=== PATIENT | male | born 1945 | race Caucasian/White ===

== ENCOUNTER 2016-11-16 06:55 | Observation (INO) | payer OTHER, MEDICARE ==
[2016-11-16] MEDS ORDERED: ceFAZolin 2 GM/DEXTROSE 100 ML IV ONE (07:00)
[2016-11-16] MEDS ORDERED: DIAZEPAM 5 MG TAB PO ONE (07:00)
[2016-11-16] MEDS ORDERED: BACITRACIN IRRIGATION/NS 50,000 UNITS/1,000 ML BTL IRR ONE (07:00)
[2016-11-16] MEDS ORDERED: diphenhydrAMINE 25 MG CAP PO ONE (07:00)
[2016-11-16] MEDS ORDERED: NS 1,000 ML IV ONE ×2 (07:00)
[2016-11-16 07:49] LABS: % IMMATURE GRANULYOCYTES 0.2 % (0.0-1.1); ABSOLUTE IMMATURE GRANULOCYTES 0.01 10^3/uL (0.00-0.10); ADD DIFF? NO; ADD MORPH? NO; ADD SCAN? NO; ATYPICAL LYMPHOCYTE FLAG 0 (0-99); FRAGMENT RBC FLAG 0 (0-99); HEMATOCRIT 42.2 % (40.0-51.0); HEMOGLOBIN 14.4 g/dL (13.7-17.5); LEFT SHIFT FLG 0 (0-99); LIPEMIA HEMOLYSIS FLAG 90 (0-99); MEAN CELL HEMOGLOBIN 31.7 pg (27.9-34.1); MEAN CELL HEMOGLOBIN CONCENTR. 34.1 g/dL (32.4-36.7); MEAN PLATELET VOLUME 9.3 fL (8.7-11.7); PLATELET CLUMPS FLAG 0 (0-99); PLATELET COUNT 126 10^3/uL (150-400); RED BLOOD CELL COUNT 4.54 10^6/uL (4.40-6.38); RED CELL DISTRIBUTION WIDTH 13.7 % (11.5-15.2)
[2016-11-16 07:55] LABS: INR 0.96 (0.83-1.16); PROTIME(PATIENT) 12.7 SEC (12.0-15.0)
[2016-11-16 07:56] LABS: APTT 30.1 SEC (23.0-38.0)
[2016-11-16 07:59] LABS: ANION GAP 11 mEq/L (8-16); CARBON DIOXIDE 27 mEq/l (22-31); CHLORIDE 105 mEq/L (97-110); CREATININE 0.8 mg/dL (0.7-1.3); GLOMERULAR FILTRATION RATE > 60; GLUCOSE 105 mg/dL (70-100); MAGNESIUM 1.8 mg/dL (1.6-2.3); POTASSIUM 4.1 mEq/L (3.5-5.2); SODIUM 143 mEq/L (134-144)
[2016-11-16] MEDS ORDERED: MIDAZOLAM 2 MG/2 ML VIAL ONE (08:34)
[2016-11-16] MEDS ORDERED: PROPOFOL/EMULSION 500 MG/50 ML BOTTLE IV ONE ×3 (08:37→10:23)
[2016-11-16] MEDS ORDERED: fentaNYL 250 MCG/5 ML INJ ONE (08:37)
[2016-11-16] MEDS ORDERED: ROCURONIUM 50 MG/5 ML VIAL ONE ×3 (08:41→10:42)
[2016-11-16] MEDS ORDERED: DEXAMETHASONE 4 MG/ML VIAL ONE (09:14)
--- NOTE | 2016-11-16 09:49 | CPEKG ---
Heart Rate: 71 RR Interval: 845 P-R Interval: 212 QRSD Interval: 100 QT Interval: 392 QTC Interval: 426 QRS [place]: -22 T Wave [place]: -19 EKG Severity - ABNORMAL ECG - EKG Impression: ATRIAL-PACED RHYTHM EKG Impression: INFERIOR INFARCT, AGE INDETERMINATE Electronically Signed By: Harshad Hernández 16-Nov-2016 15:44:34
[2016-11-16] MEDS ORDERED: GLYCOPYRROLATE 0.2 MG/1 ML VIAL ONE (10:22)
[2016-11-16] MEDS ORDERED: fentaNYL 100 MCG/2 ML INJ ONE (10:23)
[2016-11-16] MEDS ORDERED: SUGAMMADEX SODIUM 200 MG/2 ML VIAL IVP ONE (11:09)
[2016-11-16] MEDS ORDERED: ONDANSETRON 4 MG/2 ML VIAL ONE (11:10)
[2016-11-16] MEDS ORDERED: OXYCODONE/APAP 5/325 TAB PO PRN ×2 (11:31→15:08)
[2016-11-16] MEDS ORDERED: ONDANSETRON 4 MG/2 ML VIAL IVP PRN (11:31)
[2016-11-16] MEDS ORDERED: ACETAMINOPHEN 325 MG TAB PO PRN (11:31)
--- NOTE | 2016-11-16 11:31 | EPPROC ---
Electrophysiology Procedure Note: ELECTROPHYSIOLOGIC STUDY AND CATHETER MEDIATED ABLATION OF FOCAL RIGHT ATRIAL TACHYCARDIA AND AVNRT PROCEDURES PERFORMED: 48429-93 EP evaluation with RA/RV/LA pace/record, with arrhythmia induction 12297-60 EP evaluation with RA/RV pace record, insert/reposition catheter, with arrhythmia induction 65235 Intracardiac catheter ablation, SVT arrhythmogenic focus 46314 3D mapping Fluoroscopy Second arrhythmia Pacemaker reprogramming INDICATION: Presyncope HR 180 bpm seen on pacemaker check Prior inferior AK, LVEF 45% Catheters and anesthesia: The patient arrived in the Electrophysiology Laboratory in the fasting state. The right clavicular region, right groin, and left groin area were prepped and draped in the usual sterile manner. Anesthesiologist Dr. Madelyn Gomez administered general anesthesia. Appropriate non-invasive blood pressure, pulse oximetry and end-tidal CO2 monitoring was established. All catheters were placed percutaneously using the modified Seldinger technique , and advanced into position under fluoroscopic guidance. One #6 Hungarian Lissa electrode catheter was advanced to the His-bundle position via the left femoral vein (2mm spacing; except the proximal ring which was 25cm from the tip - used for unipolar recordings). This was later placed at the right atrial appendage. One #7 Hungarian deflectable catheter with 10 pairs of electrodes was placed via the left femoral vein into the coronary sinus. Programmed stimulation was performed from the right atrium, left atrium ( coronary sinus) and right ventricle. Parahisian pacing demonstrated all retrograde conduction over the AV node There was underlying sinus node dysfunction with junctional escape rhythm. This is known and preexisting. Pacemaker was reprogrammed to VVI 40 ppm during the case. There is an abandoned ventricular lead. Atrial lead has low impedance and is programmed unipolar. Programmed stimulation from Heparin was administered to keep ACT > 200 seconds. Programmed stimulation of right atrium during infusion of isoproterenol 3 mcg/ min induced an atrial tachycardia CL 330 ms . AV dissociation was confirmed with PVC. A second arrhythmia, CL 290 ms was induced. This started with long AH interval. VA interval was 5 ms. This tachycardia did not sustain and therefore we could not entrain it. Agilis sheath was placed in the RA. A #7 Hungarian mapping catheter was introduced into the right atrium . A 3D mapping system (Carto) was used. Ablation in the slow AV abrahan pathway area eliminated SVT, CL 290 ms. Following this, an a detailed 3D map of the right atrium and coronary sinus was performed during atrial tachycardia. This showed earliest atrial activation along the anterolateral base of the right atrial appendage. Earliest atrial activation began 15 ms before the onset of the P wave with a negative deflection in the unipolar electrogram. RF applications were delivered to this site. This accelerated and then terminated the tachycardia. Programmed stimulation in the baseline state and during infusion of isoproterenol 1, 2 and 3 mcg/min post ablation was performed. No tachycardia could be induced. The catheters were removed. Pacemaker was reprogrammed to DDDR 70-130 ppm. The patient was transferred to the cardiovascular holding area in stable condition. Vascular access sheaths were removed in the holding area. There were no apparent complications. CONCLUSIONS: 1. Focal atrial tachycardia arising at base of right atrial appendage. 2. Successful ablation of focal atrial tachycardia. 3. AVNRT, successful ablation. 4. No inducible ventricular tachycardia. 5. No apparent complications. Patient Problems: Problems Problem Status Diagnosed Supraventricular tachycardia Acute Chest pain Acute
[2016-11-16] MEDS ORDERED: NON-FORMULARY NEW DRUG (Oxycodone Hcl/Acetaminophen [Percocet 7.5-325 Mg Tablet] 1 EACH) PO PRN (11:32)
[2016-11-16] MEDS ORDERED: CYCLOBENZAPRINE 10 MG TAB PO PRN (11:32)
[2016-11-16] MEDS ORDERED: FLUTICASONE NASAL 120 SPRAYS/16 GM MDI EACHNARE PRN (11:32)
[2016-11-16] MEDS ORDERED: ACYCLOVIR 400 MG TAB PO PRN (11:32)
--- NOTE | 2016-11-16 12:19 | CPEKG ---
Heart Rate: 70 RR Interval: 857 P-R Interval: 200 QRSD Interval: 102 QT Interval: 396 QTC Interval: 428 QRS [place]: -22 T Wave [place]: -32 EKG Severity - ABNORMAL ECG - EKG Impression: ATRIAL-PACED RHYTHM EKG Impression: INFERIOR INFARCT, AGE INDETERMINATE Electronically Signed By: Harshad Hernández 16-Nov-2016 15:44:29
[2016-11-16 12:58] LABS: ANION GAP 11 mEq/L (8-16); CALCIUM 8.4 mg/dL (8.5-10.4); CARBON DIOXIDE 25 mEq/l (22-31); CHLORIDE 107 mEq/L (97-110); CREATININE 0.7 mg/dL (0.7-1.3); GLOMERULAR FILTRATION RATE > 60; GLUCOSE 112 mg/dL (70-100); MAGNESIUM 1.7 mg/dL (1.6-2.3); POTASSIUM 3.7 mEq/L (3.5-5.2); SODIUM 143 mEq/L (134-144)
[2016-11-16] MEDS ORDERED: oxyCODONE IR 5 MG TAB PO PRN (15:07)
[2016-11-16] MEDS: METOPROLOL TARTRATE 25 MG TAB PO SCH (20:17)
[2016-11-16] MEDS: CALCIUM CARB W/VIT D 500 MG TAB PO SCH (20:30)
[2016-11-16] MEDS: PSYLLIUM METAMUCIL 1 PKT PO SCH (20:30)
[2016-11-16] MEDS ORDERED: EZETIMIBE 10 MG TAB PO SCH ×2 (21:00)
[2016-11-16] MEDS ORDERED: ROSUVASTATIN CALCIUM 40 MG TAB PO SCH ×2 (21:00)
[2016-11-16] MEDS ORDERED: PIOGLITAZONE HCL 45 MG TAB PO SCH (21:00)
[2016-11-16] MEDS ORDERED: traZODone 50 MG TAB PO SCH (21:00)
[2016-11-16] MEDS ORDERED: SERTRALINE HCL 100 MG TAB PO SCH (21:00)
[2016-11-16] MEDS ORDERED: PIOGLITAZONE HCL 15 MG TAB PO SCH (21:00)
[2016-11-16] MEDS ORDERED: ASPIRIN 81 MG CHEWABLE TAB PO SCH (21:00)
[2016-11-16] MEDS ORDERED: NIACIN ER 500 MG TAB.ER PO SCH (21:00)
[2016-11-16] MEDS ORDERED: METOPROLOL TARTRATE 25 MG TAB PO SCH (21:00)
[2016-11-17 05:07] LABS: % IMMATURE GRANULYOCYTES 0.3 % (0.0-1.1); ABSOLUTE IMMATURE GRANULOCYTES 0.02 10^3/uL (0.00-0.10); ADD DIFF? NO; ADD MORPH? NO; ADD SCAN? NO; ATYPICAL LYMPHOCYTE FLAG 0 (0-99); FRAGMENT RBC FLAG 0 (0-99); HEMATOCRIT 38.7 % (40.0-51.0); HEMOGLOBIN 13.2 g/dL (13.7-17.5); LEFT SHIFT FLG 0 (0-99); LIPEMIA HEMOLYSIS FLAG 90 (0-99); MEAN CELL HEMOGLOBIN 31.9 pg (27.9-34.1); MEAN CELL HEMOGLOBIN CONCENTR. 34.1 g/dL (32.4-36.7); MEAN CELL VOLUME 93.5 fL (81.5-99.8); PLATELET CLUMPS FLAG 0 (0-99); PLATELET COUNT 135 10^3/uL (150-400); RED BLOOD CELL COUNT 4.14 10^6/uL (4.40-6.38); RED CELL DISTRIBUTION WIDTH 13.6 % (11.5-15.2)
[2016-11-17 05:24] LABS: INR 0.94 (0.83-1.16); PROTIME(PATIENT) 12.5 SEC (12.0-15.0)
[2016-11-17 05:33] LABS: ANION GAP 9 mEq/L (8-16); CALCIUM 8.7 mg/dL (8.5-10.4); CARBON DIOXIDE 28 mEq/l (22-31); CHLORIDE 105 mEq/L (97-110); CREATININE 0.7 mg/dL (0.7-1.3); GLOMERULAR FILTRATION RATE > 60; GLUCOSE 153 mg/dL (70-100); POTASSIUM 4.1 mEq/L (3.5-5.2); SODIUM 142 mEq/L (134-144)
[2016-11-17 05:38] LABS: CREATINE KINASE-MB FRACTION 1.54 ng/mL (0-3.19); TROPONIN I 0.216 ng/mL (0-0.034)
[2016-11-17] MEDS ORDERED: LEVOTHYROXINE 200 MCG TAB PO SCH (06:00)
[2016-11-17] MEDS: CALCIUM CARB W/VIT D 500 MG TAB PO SCH (07:43)
[2016-11-17] MEDS: METOPROLOL TARTRATE 25 MG TAB PO SCH (07:47)
[2016-11-17] MEDS: PSYLLIUM METAMUCIL 1 PKT PO SCH (07:54)
[2016-11-17 08:40] VITALS: BP 116/57; PULSE 75; RESP 16; TEMP 97.9; O2SAT 91
[2016-11-17] MEDS ORDERED: CHOLECALCIFEROL VIT D3 1,000 UNITS TAB PO SCH (09:00)
--- NOTE | 2016-11-17 09:01 | CPEKG ---
Heart Rate: 71 RR Interval: 845 P-R Interval: 232 QRSD Interval: 102 QT Interval: 396 QTC Interval: 431 QRS [place]: -18 T Wave [place]: -25 EKG Severity - ABNORMAL ECG - EKG Impression: ATRIAL-PACED RHYTHM EKG Impression: INFERIOR INFARCT, AGE INDETERMINATE Electronically Signed By: Harshad Hernández 17-Nov-2016 17:41:05
--- NOTE | 2016-11-17 10:59 | ECHO ---
[id number] + + [address] : : [place] [address] : : [phone] + + Adult Echocardiographic Report + -------+ :Name: ALHAJI HARDIN Starr Date: 11/17/2016 08:30 AM : : Hospital Admission Number: [id number] Locati on: 205: :: 1945 Gender: Male Height: 71 in : :Age: 71 yrs Race: WH Weight: 207 lb : :Reason For Study: SVT/F/U post EP study : : BSA: 2.1 meter s2 : :History: Pacer : + -------+ MMode/2D Measurements & Calculations IVSd: 1.2 cm LVIDd: 5.4 cm FS: 17.1 % Ao root diam: LVPWd: 1.1 cm LVIDs: 4.5 cm EDV(Teich): 3.8 cm 142.9 ml LA dimension: ESV(Teich): 4.6 cm 92.4 ml EF(Teich): 35.3 % LVLd ap4: 9.0 cm SV(MOD-sp4): EDV(MOD-sp4): 75.0 ml 134.0 ml LVLs ap4: 7.2 cm ESV(MOD-sp4): 59.0 ml EF(MOD-sp4): 56.0 % Normal Measurement Values: + + :LVIDd (3.5-5.7cm) IVSd (0.6-1.1cm) LVPWd (0.6-1.1cm) Aortic Root (2.0-3.7cm)Left Atrium (1.5-4.0cm): :LV Vol(d) (76-115ml) LV Vol(s) (29-48ml) Ejec Fraction (50-65%)PV Kwaku (0.6- 1.2m/s) TV Kwaku (0.4-1.0m/s) : :MV E Kwaku (0.8-1.0m/s)MV A Kw[place] (0.3-1.0m/s)LVOT Kw[place] (0.7-1.2m/s) Asc Ao Kwaku ( 0.9-1.8m/s) : + + Doppler Measurements & Calculations MV E max kwaku: 94.8 cm/sec Ao mean P.1 mmHg TR max kwaku: 230.8 cm/sec MV A max kwaku: 111.6 cm/sec Ao V2 mean: 93.9 cm/sec TR max P.3 mmHg MV E/A: 0.85 Ao V2 VTI: 29.1 cm RAP systole: 5.0 mmHg RVSP(TR): 26.3 mmHg Left Ventricle The left ventricle is normal in size. There is normal left ventricular wall thickness. Left ventricular systolic function is normal. There is Doppler evidence for diastolic dysfunction. EF estimate is 45-50%. LV basal/mid inferior/inferolateral arteaga are akinetic. Right Ventricle The right ventricle is normal in size and function. There is a pacemaker lead in the right ventricle. Atria The left atrial size is normal. Right atrial size is normal. The interatrial septum is intact with no evidence for an atrial septal defect. Mitral Valve There is mild mitral annular calcification. There is no evidence of mitral valve prolapse. There is no mitral valve stenosis. There is trace to mild mitral regurgitation. Tricuspid Valve Normal tricuspid valve. There is mild tricuspid regurgitation. Right ventricular systolic pressure is normal. Aortic Valve The aortic valve is trileaflet. The aortic valve opens well. Mild Aortic Valve Calcification. There is no aortic stenosis. Trace aortic regurgitation. Pulmonic Valve The pulmonic valve is normal in structure and function. Mild pulmonic valvular regurgitation. Great Vessels The aortic root is normal size. Pericardium/Pleural There is no pericardial effusion. There is a fat pad seen. Conclusion A complete two-dimensional transthoracic echocardiogram was performed (2D, M-mode, Doppler and color flow Doppler). Left ventricular systolic function is normal. There is Doppler evidence for diastolic dysfunction. LV basal/mid inferior/inferolateral arteaga are akinetic. EF estimate is 45-50%. There is a pacemaker lead in the right ventricle. There is mild mitral annular calcification. There is trace to mild mitral regurgitation. There is mild tricuspid regurgitation. Right ventricular systolic pressure is normal. Mild Aortic Valve Calcification Trace aortic regurgitation. Mild pulmonic valvular regurgitation. There is a fat pad seen. There is no pericardial effusion. Final Reading Physician: Alfredo Arreola signed on 11/17/2016 10:58 AM Ordering Physician: Jah Cevallos Performed By: Shalonda Nielsen, RADHA
--- NOTE | 2016-11-17 11:27 | GDS ---
[f rep st] DISCHARGE SUMMARY PRIMARY AD TRAFFICKER: Dr. Channing Kinsey; patient also under the care of Dr. Jah Cevallos. DISCHARGE DIAGNOSIS: 1. Atrial tachycardia, status post ablation. 2. Atrioventricular abrahan reentry tachycardia (AVNRT), status post ablation. 3. No evidence of ventricular tachycardia by electrophysiology study. 4. Prior inferior myocardial infarction with stenting. 5. Ischemic cardiomyopathy with ejection fraction of 45% by multigated acquisition (MUGA) scan. HOSPITAL COURSE: For detailed H and P, please see prior dictation. Briefly, the patient is a 71-year-old male with a history of inferior AZ and prior stenting. His last ejection fraction was measured at 45% by MUGA scan. He also has a history of palpitations and 1 episode of presyncope despite beta cristiana therapy. His events were occurring approximately 2 times a week, and he was identified to have what would appear to be ventricular tachycardia on his pacer interrogation. Ultimately, the decision was made to proceed with an EP study and possible ablation. This was performed by Dr. Jah Cevallos on November 16, 2016. He was identified to have both an atrial tachycardia and AVNRT , which were ablated. No ventricular tachycardia was inducible by EP study. The following morning, the patient denied any chest discomfort or palpitations. He was monitored on telemetry and remained in normal sinus rhythm. His EKG on the day of discharge showed a prior inferior AZ with atrial pacing. His troponin peaked at 0.216. The preliminary results of his echo revealed a depressed ejection fraction of 45% with no evidence of pericardial effusion. His right atiral lead has known low impedance but the capture threshold is fine. DISCHARGE PHYSICAL EXAMINATION: GENERAL APPEARANCE: The patient appears in no acute distress. VITAL SIGNS: Blood pressure 116/57, heart rate 75, respirations 16, oxygen saturation 91% on room air, afebrile. LUNGS: Clear to auscultation. No wheezes, rhonchi, or crackles auscultated. CARDIAC: Regular rate and rhythm without any significant murmurs, rubs, or gallops appreciated. GROINS: Bilateral groins where access was obtained for the EP study and ablation are clean and intact, without any evidence of infection or hematoma. DISCHARGE MEDICATIONS: Losartan 25 mg daily will be resumed; acyclovir 800 mg 5 times a day p.r.n.; aspirin 81 mg daily; Os-Bear b.i.d.; vitamin D3 5000 units daily; Flexeril 10 mg t.i.d.; Zetia 10 mg at bedtime; Flonase p.r.n.; Synthroid 200 mcg on Wednesday, Wednesday, Wednesday, , Wednesday and Wednesday, 175 mg on Wednesday; metoprolol 25 mg b.i.d.; niacin 1500 mg at bedtime; Actos 45 mg at bedtime; Metamucil daily; Crestor 40 mg at bedtime; Zoloft 100 mg at bedtime; trazodone 75 mg at bedtime; herbal supplement daily; Percocet 7.5/325 mg p.r.n. DISCHARGE PLAN: The patient is currently stable and ready for discharge home. He has been given groin precautions. He will follow up with Dr. Jah Cevallos in 1 month. He does have an ischemic cardiomyopathy and, therefore, his losartan was resumed. In the past, he complained of a dry cough but he feels like this may have been associated with reflux and not due to the medication. He will have another trial of losartan. /[id number]/MODL MTDD
[2016-11-23] MEDS ORDERED: LEVOTHYROXINE 175 MCG TAB PO SCH (06:00)
== END 2016-11-17 10:53 | disposition home or self-care (01) ==
LOC: FCATH 06:55 → F2W 11:31
PROVIDERS: ADMIT Internal Medicine Cardiovascular Disease; ATTEND Internal Medicine Cardiovascular Disease
PROC: 3E053KZ Introduction of Other Diagnostic Substance into Peripheral Artery, Percutaneous Approach (ICD-10-PCS; principal; 2016-11-16)
PROC: 4A023FZ Measurement of Cardiac Rhythm, Percutaneous Approach (ICD-10-PCS; principal; 2016-11-16)
PROC: 02583ZZ Destruction of Conduction Mechanism, Percutaneous Approach (ICD-10-PCS; principal; 2016-11-16)
PROC: 02K83ZZ Map Conduction Mechanism, Percutaneous Approach (ICD-10-PCS; principal; 2016-11-16)
DX: I47.1 Supraventricular tachycardia (principal); I25.10 Atherosclerotic heart disease of native coronary artery without angina pectoris; E11.9 Type 2 diabetes mellitus without complications; E78.5 Hyperlipidemia, unspecified; I10 Essential (primary) hypertension; Z95.0 Presence of cardiac pacemaker; I25.2 Old myocardial infarction; Z95.5 Presence of coronary angioplasty implant and graft
CPT/HCPCS: 93005; 93306; 93613; 93621; 93623; 93653; 93655; C1730; C1731; C1732; C1766; J1100; J2250; J2405; J2704; J3010; J0690

== ENCOUNTER 2017-02-23 19:01 | Inpatient (IN) | payer OTHER, MEDICARE ==
--- NOTE | 2017-02-23 19:42 | EDPHY ---
H & P Stated Complaint: dizzy, chest tightness Time Seen by Provider: 02/23/17 19:40 HPI/ROS: CHIEF COMPLAINT: Chest pain. HISTORY OF PRESENT ILLNESS: The patient is a 71-year-old male with CAD s/p stenting and pacemaker who presents with chest pain that started about 2 hours ago at 6pm. The patient was bending over to look for something. When he stood back up he felt dizzy with chest tightness. He went downstairs and took Nitro. He continued to feel uncomfortable. At that time his pulse was 128 and BP was 102/70. The patient reports persistent cough and congestion for the last month. He had a cardiac ablation at the beginning of November. He had his pacemaker checked last week and tells me that there were some irregularities--he isn't sure what that meant. The patient additionally notes an episode yesterday at [facility] where he began to feel heart palpitations, dizziness, lightheadedness. He had to hold onto the cart and felt short of breath for about 10 minutes. Cardiac cath in September 2016. REVIEW OF SYSTEMS: A ten point review of systems was performed and is negative with the exception of the items mentioned in the HPI. Source: Patient - Personal History Current Tetanus/Diphtheria Vaccine: Yes Current Tetanus Diphtheria and Acellular Pertussis (TDAP): Yes - Medical/Surgical History Hx Asthma: Yes Hx Chronic Respiratory Disease: No Hx Diabetes: No Hx Cardiac Disease: Yes Hx Renal Disease: No Hx Cirrhosis: No Hx Alcoholism: Yes Hx HIV/AIDS: No Hx Splenectomy or Spleen Trauma: No Other PMH: PPM, DC, stents x9, lumbar and cervical spinal fusions, L foot hardware - Social History Smoking Status: Former smoker Additional Social History: He is and lives in [place] with his . Drinks alcohol every other day. - Physical Exam Exam: General Appearance: Alert. Vital signs reviewed. BP 116/72. Eyes: Pupils equal and round, no conjunctival injection, no discharge. Anicteric. ENT, Mouth: Mucous membranes are moist, no oropharyngeal erythema or edema. Neck: No lymphadenopathy, supple. Respiratory: Lungs are clear to auscultation; Slight wheezing with inspiration. Cardiovascular: Regular rate and rhythm; no murmur, rub, or gallop. Thorax: Pacer pocket clean and dry. Gastrointestinal: Abdomen is soft and nontender, no masses or organomegaly, bowel sounds normal. Skin: Warm and dry, no rashes on exposed skin, normal color. Back: Nontender to palpation over the thoracolumbar spine. No CVAT. Extremities: No lower extremity edema, no calf tenderness or swelling. Neurological: Alert and oriented. Moving all four extremities easily and equally. Psychiatric: Normal affect. Constitutional: Initial Vital Signs Temperature (C) 36.5 C 02/23/17 19:12 Heart Rate 77 02/23/17 19:12 Respiratory Rate 20 02/23/17 19:12 Blood Pressure 121/79 H 02/23/17 19:12 O2 Sat (%) 98 02/23/17 19:12 O2 Delivery Mode Room Air O2 (L/minute) 2 Allergies/Adverse Reactions: No Known Allergies Allergy (Unverified 02/23/17 19:10) Home Medications: Medication Instructions Recorded Acyclovir [Zovirax 400 mg (*)] 800 mg PO 5XD PRN 05/13/14 Aspirin [Aspirin 81mg (*)] 81 mg PO HS 05/13/14 Calcium Carbonate/Vitamin D3 1 tab PO BIDMEAL 05/13/14 [Os-Bear 500-Vit D3 200 [place]] Ezetimibe [Zetia 10 MG (*)] 10 mg PO HS 05/13/14 Herbals/Supplements -Info Only 1 ea PO DAILY 05/13/14 Levothyroxine [Synthroid 175 mcg 175 mcg PO MO@06 05/13/14 (*)] Niacin ER [Niaspan 500 mg (*)] 1,500 mg PO HS 05/13/14 Pioglitazone HCl [Actos 15mg (*)] 45 mg PO HS 05/13/14 Psyllium Husk [Metamucil] 2 cap PO BID 05/13/14 Rosuvastatin Calcium [Crestor 40mg 40 mg PO HS 05/13/14 (*)] traZODone [traZODONE 50MG (*)] 75 mg PO HS 05/13/14 Fluticasone Nasal [Flonase Nasal 1 sprays EACHNARE DAILY PRN 09/29/16 [place]] Cholecalciferol Vit D3 [Vitamin D3 5,000 units PO DAILY 11/16/16 (*)] Sertraline HCl [Zoloft 100mg (*)] 50 mg PO HS 11/16/16 Losartan Potassium [Cozaar 25 mg 25 mg PO HS 02/23/17 (*)] Levothyroxine [Synthroid 100 mcg 100 mcg PO SuTuWeThFrSa@0600 #30 02/25/17 (*)] tab Levothyroxine [Synthroid 88 mcg 88 mcg PO SuTuWeThFrSa@0600 #30 tab 02/25/17 (*)] Metoprolol Tartrate [Lopressor 25 12.5 mg PO BID #60 tab 02/25/17 mg (*)] Medical Decision Making - Diagnostics EKG Interpretation: The 12 lead EKG was interpreted by myself. See hard copy and/or "tracemaster" electronic copy for interpretation: Atrial-paced around 70. Signs of inferior infarct. I viewed the patients previous EKG. Imaging Results: Chest xray NAPD, pacer wires appear intact. ED Course/Re-evaluation: The patient is a 71-year-old male with pacemaker and history of cardiac stents who presents with sudden onset of chest pain about 2 hours ago at 6pm. The patient bent down, when he stood up he felt dizzy with chest pain. He took a nitro but continued to feel uncomfortable. Patients blood pressure is 116/72, this is normal compared to baseline. Cardiac workup was initiated. The patient was placed on a monitoring analyst. EKG, chest x-ray, labs, and troponin were ordered. An x-ray of chest was obtained. I viewed the images myself on the PACS system. See the full radiology report. 9:10 p.m.: I reexamined the patient, he continues to have mild upper left chest pressure. First troponin is normal. Labs are wnl. I discussed admission with the patient, he agrees with the plan after some convincing. He had pacemaker placed in November, recently checked, but will likely need to have his pacer interrogated to get a sense of what happened both yesterday and today. He is paced in ED. I am concerned about tachy arrythmia and/or angina. I do not think that his discomfort is of GI etiology, although he has a history of GERD. Nothing to suggest pulmonary or other infection. 9:15 p.m.: I spoke to the hospitalist, Dr. Odonnell who accepts the patient for admission. - Data Points Laboratory Results: Laboratory Results 02/23/17 19:43 02/24/17 04:57 Medications Given: Discontinued Medications Aspirin (Aspirin) 325 mg PO DAILY [facility] Stop: 08/22/17 21:59 Last Admin: 02/25/17 08:07 Dose: 325 mg Calcium/Vitamin D (Calcium Carb W/Vit D) 500 mg PO BID [facility] Stop: 08/23/17 08:59 Last Admin: 02/25/17 08:07 Dose: 500 mg Cholecalciferol (Vitamin D) 5,000 units PO DAILY [place] Stop: 08/23/17 08:59 Last Admin: 02/25/17 08:09 Dose: 5,000 units Ezetimibe (Zetia) 10 mg PO HS [facility] Stop: 08/23/17 20:59 Last Admin: 02/24/17 21:28 Dose: 10 mg Enoxaparin Sodium (Lovenox) 40 mg SC DAILY [facility] Stop: 08/23/17 08:59 Last Admin: 02/25/17 08:10 Dose: 40 mg Sodium Chloride (Ns) 500 mls @ 1,500 mls/hr IV ONCE ONE Stop: 02/23/17 21:20 Last Admin: 02/24/17 06:53 Dose: Not Given Levothyroxine Sodium (Synthroid) 188 mcg PO SUTUWETHFRSA@06 [facility] Stop: 08/23/17 08:30 Last Admin: 02/24/17 12:36 Dose: Not Given Levothyroxine Sodium (Synthroid) 88 mcg PO SuTuWeThFrSa@0600 [facility] Stop: 08/23/17 05:59 Last Admin: 02/25/17 05:58 Dose: 88 mcg Levothyroxine Sodium (Synthroid) 100 mcg PO SuTuWeThFrSa@0600 [facility] Stop: 08/23/17 10:29 Last Admin: 02/25/17 05:58 Dose: 100 mcg Losartan Potassium (Cozaar) 25 mg PO HS [facility] Stop: 08/23/17 20:59 Last Admin: 02/24/17 21:28 Dose: 25 mg Metoprolol Tartrate (Lopressor) 12.5 mg PO DAILY [facility] Stop: 08/23/17 08:59 Last Admin: 02/24/17 12:36 Dose: Not Given Metoprolol Tartrate (Lopressor) 12.5 mg PO ONCE ONE Stop: 02/24/17 17:13 Last Admin: 02/24/17 17:39 Dose: 12.5 mg Metoprolol Tartrate (Lopressor) 12.5 mg PO BID [place] Stop: 08/23/17 20:59 Last Admin: 02/25/17 08:07 Dose: 12.5 mg Niacin (Niaspan) 1,500 mg PO HS [facility] Stop: 08/23/17 20:59 Last Admin: 02/24/17 21:28 Dose: 1,500 mg Pioglitazone HCl (Actos) 45 mg PO HS [facility] Stop: 08/23/17 20:59 Last Admin: 02/24/17 21:28 Dose: 45 mg Pneumococcal 13-Valent Conj Vacc (Prevnar 13 Syringe) 0.5 ml IM .ONCE ONE Stop: 02/24/17 11:45 Last Admin: 02/24/17 13:26 Dose: Not Given Psyllium Hydrophilic Mucilloid (Metamucil/Konsyl) 1 each PO BID [place] Stop: 08/23/17 08:59 Last Admin: 02/25/17 08:06 Dose: 1 each Rosuvastatin Calcium (Crestor) 40 mg PO [facility] Stop: 08/23/17 20:59 Last Admin: 02/24/17 21:28 Dose: 40 mg Sertraline HCl (Zoloft) 50 mg PO [facility] Stop: 08/23/17 20:59 Last Admin: 02/24/17 21:29 Dose: 50 mg Trazodone HCl (Trazodone) 75 mg PO [facility] Stop: 08/23/17 00:29 Last Admin: 02/24/17 00:39 Dose: 75 mg Trazodone HCl (Trazodone) 75 mg PO [facility] Stop: 08/23/17 20:59 Last Admin: 02/24/17 21:29 Dose: 75 mg Departure - Departure Disposition: [facility] Acute Clinical Impression: Palpitations Chest pain Qualifiers: Chest pain type: unspecified Qualified Code(s): R07.9 - Chest pain, unspecified Condition: Good Report Scribed for: Keesha Nieves Report Scribed by: Brunilda Hernandes Date of Report: 02/23/17 Time of Report: 20:02 Physician Review and Approval Statement: 02/23/17 19:42 Portions of this note were transcribed by the phlebotomist medical lab assistant. I, Dr. Keesha Nieves, personally performed the history, physical exam, and medical decision- making; and confirmed the accuracy of the information in the transcribed note.
--- NOTE | 2017-02-23 19:43 | CPEKG ---
Heart Rate: 80 RR Interval: 750 P-R Interval: 204 QRSD Interval: 102 QT Interval: 364 QTC Interval: 420 QRS [place]: -33 T Wave [place]: -35 EKG Severity - ABNORMAL ECG - EKG Impression: ATRIAL-PACED RHYTHM EKG Impression: INFERIOR INFARCT, AGE INDETERMINATE Electronically Signed By: Keesha Nieves 23-Feb-2017 19:48:33
[2017-02-23 19:52] LABS: ADD DIFF? NO; ADD MORPH? NO; ADD SCAN? NO; ATYPICAL LYMPHOCYTE FLAG 10 (0-99); FRAGMENT RBC FLAG 0 (0-99); HEMATOCRIT 41.4 % (40.0-51.0); HEMOGLOBIN 14.3 g/dL (13.7-17.5); LEFT SHIFT FLG 0 (0-99); LIPEMIA HEMOLYSIS FLAG 90 (0-99); MEAN CELL HEMOGLOBIN 31.8 pg (27.9-34.1); MEAN CELL HEMOGLOBIN CONCENTR. 34.5 g/dL (32.4-36.7); MEAN PLATELET VOLUME 9.6 fL (8.7-11.7); PLATELET CLUMPS FLAG 10 (0-99); PLATELET COUNT 142 10^3/uL (150-400); RED CELL DISTRIBUTION WIDTH 13.3 % (11.5-15.2)
[2017-02-23 20:14] LABS: ANION GAP 11 mEq/L (8-16); CALCIUM 9.6 mg/dL (8.5-10.4); CARBON DIOXIDE 24 mEq/l (22-31); CHLORIDE 107 mEq/L (97-110); CREATININE 0.7 mg/dL (0.7-1.3); GLOMERULAR FILTRATION RATE > 60; GLUCOSE 88 mg/dL (70-100); POTASSIUM 3.7 mEq/L (3.5-5.2); SODIUM 142 mEq/L (134-144)
[2017-02-23 20:25] LABS: TROPONIN I < 0.012 ng/mL (0-0.034)
[2017-02-23] MEDS: NS 500 ML IV ONE (20:45)
[2017-02-23] MEDS ORDERED: ACETAMINOPHEN 325 MG TAB PO PRN (21:39)
[2017-02-23] MEDS ORDERED: ONDANSETRON 4 MG/2 ML VIAL IVP PRN (21:39)
[2017-02-23] MEDS ORDERED: ONDANSETRON DISINTEGRATING 4 MG TAB PO PRN (21:39)
--- NOTE | 2017-02-23 22:21 | GHP ---
[f rep st] HISTORY AND PHYSICAL DATE OF ADMISSION: 02/23/2017 The patient is a pleasant 71-year-old gentleman history of coronary disease, multiple stents, as well as atrial arrhythmias, who presents with an episode of chest pressure that happened yesterday, as well as some palpitations today. Yesterday, the patient was shopping at [employer]. He felt lightheaded, dizzy, as well as palpitations. He felt short of breath for about 10 minutes and held onto the cart. Today, he had chest pain that started about 2 hours prior to presentation. He was bending over to look for something. He had chest tightness snd he took a nitroglycerin. It is not clear that helped. He also took his pulse and it was in the 120s and his blood pressure was 102/70, both of which are abnormal. He has recently had his pacer interrogated and it was unremarkable. He has had a cough for the last month. He has also had a cardiac ablation at the beginning of November of this year for SVT. He denies fever, chills. He has had a productive cough likely secondary to a viral illness. He does not have heart failure symptoms such as PND or orthopnea. It is not clear he is having classic anginal symptoms. REVIEW OF SYSTEMS: Complete 10-point review of systems conducted, negative except as noted in the HPI. PAST MEDICAL HISTORY: 1. Coronary artery disease with multiple stents. Last catheterization was in 2013 where he had no stents placed. 2. SVT with ablation performed November 2016. 3. Pacemaker. 4. Reflux. 5. History of hyperglycemia. 6. Insomnia. ALLERGIES: No known drug allergies. MEDICATIONS: At home, list includes trazodone, sertraline, rosuvastatin, Metamucil, pioglitazone, niacin, metoprolol, losartan, levothyroxine, acetamide, cyclobenzaprine, vitamin D3, aspirin, acyclovir. SOCIAL HISTORY: Alcohol probably every other day. No tobacco. Lives in [place]. FAMILY HISTORY: Reviewed and unremarkable. Parents . PHYSICAL EXAM: VITAL SIGNS: Temp 36.5, blood pressure 121/79, pulse 77, breathing 20 times a minute, 98% on 2 L. GENERAL: No acute distress. HEENT: Sclerae anicteric. Oropharynx clear. Mucous membranes moist. NECK: Supple without lymphadenopathy or JVD. LUNGS: Clear to auscultation bilaterally. HEART: S1, S2 without murmurs. ABDOMEN: Soft, nontender, nondistended. LOWER EXTREMITIES: Without edema. Calves are nontender. SKIN: Without rash. NEUROLOGIC: Nonfocal. LABORATORY DATA: White cell 4, hematocrit 41.4, platelets are 142,000. Sodium 142, potassium 3.7, chloride 107, bicarb 24, BUN 11, creatinine 0.7, glucose 88 , troponin less than 0.012. Chest x-ray, interpreted by me, shows no acute cardiopulmonary disease. EKG shows a paced rhythm without ischemic changes. I have interpreted the EKG myself. I have discussed the case with Dr. Keesha Nieves. ASSESSMENT/PLAN: This is a 71-year-old gentleman with a history of both arrhythmia and coronary disease, who presents with chest pressure, breathlessness, as well as tachycardia. 1. Question supraventricular tachycardia. Will interrogate his pacer and following him on the monitor. Certainly, this sounds like it could be that. Alternatively, it could be sinus tachycardia in the setting of angina. 2. Question angina. He had as of 2 years ago patent stents, but he has had a number of cardiac interventions. His EKG is somewhat difficult to interpret given his pace status. We will cycle his troponins, follow him on telemetry. He received an aspirin in the emergency department. We will continue his medications once they have been reconciled. I do not see an indication for heparin at this point in time. 3. Reflux. Not complaining of any reflux like symptoms. I do not think this represents that. 4. Prophylaxis. Moderate to high risk. Pharmacologic prophylaxis indicated. 5. Disposition. Observation status pending results of this intervention. /[id number]/MODL MTDD
[2017-02-23] MEDS: ASPIRIN 325 MG TAB PO SCH (22:23)
[2017-02-24 05:46] LABS: INR 0.99 (0.83-1.16)
[2017-02-24 05:47] LABS: APTT 32.3 SEC (23.0-38.0)
[2017-02-24 06:06] LABS: ANION GAP 10 mEq/L (8-16); CALCIUM 9.3 mg/dL (8.5-10.4); CARBON DIOXIDE 27 mEq/l (22-31); CHLORIDE 109 mEq/L (97-110); CREATININE 0.7 mg/dL (0.7-1.3); GLOMERULAR FILTRATION RATE > 60; GLUCOSE 95 mg/dL (70-100); POTASSIUM 3.8 mEq/L (3.5-5.2); SODIUM 146 mEq/L (134-144)
[2017-02-24 06:11] LABS: TROPONIN I < 0.012 ng/mL (0-0.034)
[2017-02-24] MEDS: NS 500 ML IV ONE (06:53)
[2017-02-24] MEDS ORDERED: ACYCLOVIR 400 MG TAB PO PRN (08:31)
[2017-02-24] MEDS ORDERED: LEVOTHYROXINE 200 MCG TAB PO SCH (08:31)
[2017-02-24] MEDS ORDERED: FLUTICASONE NASAL 120 SPRAYS/16 GM MDI EACHNARE PRN (08:31)
--- NOTE | 2017-02-24 08:55 | CPEKG ---
Heart Rate: 73 RR Interval: 822 P-R Interval: 204 QRSD Interval: 102 QT Interval: 388 QTC Interval: 428 QRS [place]: -30 T Wave [place]: -11 EKG Severity - ABNORMAL ECG - EKG Impression: ATRIAL-PACED RHYTHM EKG Impression: INFERIOR INFARCT, AGE INDETERMINATE Electronically Signed By: Shashank Gunn 25-Feb-2017 14:19:12
[2017-02-24] MEDS: ASPIRIN 325 MG TAB PO SCH (08:57)
[2017-02-24] MEDS: ENOXAPARIN 40 MG/0.4 ML SYR SC SCH (08:58)
[2017-02-24] MEDS ORDERED: METOPROLOL TARTRATE 25 MG TAB PO SCH ×3 (09:00→21:00)
[2017-02-24] MEDS ORDERED: Herbals/Supplements -Info Only PO SCH (09:00)
[2017-02-24] MEDS ORDERED: PSYLLIUM HUSK PO SCH (09:00)
[2017-02-24] MEDS: CHOLECALCIFEROL VIT D3 1,000 UNITS TAB PO SCH (09:01)
[2017-02-24] MEDS: CALCIUM CARB W/VIT D 500 MG TAB PO SCH ×2 (09:02→21:28)
[2017-02-24] MEDS: PSYLLIUM METAMUCIL 1 PKT PO SCH ×2 (09:05→21:27)
--- NOTE | 2017-02-24 10:15 | PDCARCONS ---
Cardiology Consult Chief Complaint: Lightheadedness/dizziness, chest discomfort History of Present Illness: HPI: Ray is a 71 year old man with a history of coronary artery disease s/p stent implantation (inferior CA in 1989 s/p multiple PCI's since this point in time - - most recent cardiac cath performed by Dr. Kinsey 09/29/16 revealed chronic total occlusion of the circumflex and diffuse moderate disease elsewhere without other flow-limiting obstruction identified), ischemic cardiomyopathy with most recent ejection fraction estimated to be 45% with mild global hypokinesis on MUGA study performed 10/05/2016, sick sinus syndrome s/p pacemaker implantation (most recent pacemaker interrogation performed 02/16/17 revealed 2 HVRs show one run of NSVT x 9 beats @ 226 bpm). 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 The patient presents to the emergency department yesterday for lightheadedness, dizziness and chest discomfort while shopping at [employer]. Ray was shopping when he suddenly felt very dizzy and like he was going to faint. He then felt very fatigued in the store until he sat back down in the car. At home he had a similar episode while walking up his stairs. At the top of the stairs he became dizzy/lightheaded again and experienced chest tightness that radiated into his neck. He denies shortness of breath, syncope or a sensation or tachycardia or fluttering in his chest. *TEN POINT ROS NEGATIVE EXCEPT STATED ABOVE. Assessment/Plan: 1. Lightheadedness/dizziness may be associated with tachyarrhythmia SVT vs. NSVT. I would like his device interrogated by [employer] for further evaluation. The patient was believed to have NSVT prior to AVNRT ablation; however, the ventricular rhythm could not be induced. He did have documented NSVT on recent pacemaker interrogation. 2. Coronary artery disease with known ARMATURE COIL WINDER of the left circumflex. Cardiac catheterization 09/29/16 showed diffuse moderate disease of the LAD less than 50 %, extensively stented RCA from proximal to distal with patent stents with areas up to 40% stenosis mid-vessel. Normal ramus and left main. 3. Ischemic cardiomyopathy recent ejection fraction estimated to be 45% on MUGA study. 4. The patient was discussed with Dr. Cevallos. Once we know the status of the rhythm from the pacer interrogation, we will make further recommendations. History Information - Allergies/Home Medication List Allergies/Adverse Reactions: No Known Allergies Allergy (Unverified 02/23/17 19:10) Home Medications: Acyclovir [Zovirax 400 mg (*)] 800 mg PO 5XD PRN 05/13/14 [Last Taken 09/28/16 08:00] Aspirin [Aspirin 81mg (*)] 81 mg PO HS 05/13/14 [Last Taken 02/23/17 243 MG] Calcium Carbonate/Vitamin D3 [Os-Bear 500-Vit D3 200 Caplet] 1 tab PO BIDMEAL 04/21 [Last Taken 02/23/17] Ezetimibe [Zetia 10 MG (*)] 10 mg PO HS 05/13/14 [Last Taken 02/22/17] Herbals/Supplements -Info Only 1 ea PO DAILY 05/13/14 [Last Taken 09/28/16 08:00 ] Levothyroxine [Synthroid 175 mcg (*)] 175 mcg PO MO@05/13/14 [Last Taken ] Levothyroxine [Synthroid 200 mcg (*)] 200 mcg PO SUTUWETHFRSA@05/13/14 [Last Taken 02/23/17] Niacin ER [Niaspan 500 mg (*)] 1,500 mg PO HS 05/13/14 [Last Taken 02/22/17] Pioglitazone HCl [Actos 15mg (*)] 45 mg PO HS 05/13/14 [Last Taken 02/22/17] Psyllium Husk [Metamucil] 2 cap PO BID 05/13/14 [Last Taken 02/23/17 08:00] Rosuvastatin Calcium [Crestor 40mg (*)] 40 mg PO HS 05/13/14 [Last Taken ] traZODone [traZODONE 50MG (*)] 75 mg PO HS 05/13/14 [Last Taken 02/22/17] Fluticasone Nasal [Flonase Nasal Stitzer] 1 sprays EACHNARE DAILY PRN 09/29/16 [ Last Taken 02/23/17] Metoprolol Tartrate [Lopressor 25 mg (*)] 12.5 mg PO DAILY 09/29/16 [Last Taken 02/23/17] Cholecalciferol Vit D3 [Vitamin D3 (*)] 5,000 units PO DAILY 11/16/16 [Last Taken 02/23/17] Sertraline HCl [Zoloft 100mg (*)] 50 mg PO HS 11/16/16 [Last Taken 02/22/17] Losartan Potassium [Cozaar 25 mg (*)] 25 mg PO HS 02/23/17 [Last Taken 02/22/17] I have personally reviewed and updated: family history, medical history, social history - Past Medical History coronary artery disease, hypertension, hyperlipidemia, SVT Additional medical history: sick sinus syndrome - Surgical History Reports: ablation, pacemaker/AICD, coronary stent - Social History Smoking Status: Former smoker Cardiac History - Cardiac History Past Cardiac History: CAD, PCI, ABLATION, PACEMAKER Cardiac Risk Factors: hypertension (>140/90), lipidemia, diabetes mellitus, age > 65, male Timing/Duration: Days Severity Scale: 3 Location: central, shoulder, back Activities at Onset: activity FABRICIO Risk Evaluation age greater or equal to 65: yes greater or equal to 3 CAD risk factors: yes known CAD(stenosis greater or eqaul to 50%): yes ASA use in past 7 days: yes severe angina(greater or equal to 2 episodes in 24hrs): no EKG ST changes greater or equal to 0.5mm: no positive cardiac marker: no Total Score: 4 FABRICIO Score: 19.9% risk Physical Exam Temp Pulse Resp BP Pulse Ox 36.6 C 77 14 123/73 H 94 02/24/17 07:08 02/24/17 07:08 02/24/17 07:08 02/24/17 07:08 02/24/17 07:08 Constitutional: no apparent distress, appears nourished, not in pain Cardiovascular: regular rate and rhythym, other (no murmur or rub. S3 gallop present), No edema Peripheral Pulses: 2+: carotid (R), carotid (L) Respiratory: no respiratory distress Gastrointestinal: normoactive bowel sounds Skin: warm, normal color Psychiatric: interacting appropriately, not anxious Lymph, Heme, Immunologic: no cervical LAD Lab and Imaging 02/23/17 19:43 02/24/17 04:57 WBC 4.12 10^3/uL (3.80-9.50) 02/23/17 19:43 RBC 4.50 10^6/uL (4.40-6.38) 02/23/17 19:43 Hgb 14.3 g/dL (13.7-17.5) 02/23/17 19:43 Hct 41.4 % (40.0-51.0) 02/23/17 19:43 MCV 92.0 fL (81.5-99.8) 02/23/17 19:43 MCH 31.8 pg (27.9-34.1) 02/23/17 19:43 MCHC 34.5 g/dL (32.4-36.7) 02/23/17 19:43 RDW 13.3 % (11.5-15.2) 02/23/17 19:43 Plt Count 142 10^3/uL (150-400) L 02/23/17 19:43 MPV 9.6 fL (8.7-11.7) 02/23/17 19:43 Neut % (Auto) 47.8 % (39.3-74.2) 02/23/17 19:43 Lymph % (Auto) 41.3 % (15.0-45.0) 02/23/17 19:43 [place] % (Auto) 8.7 % (4.5-13.0) 02/23/17 19:43 Eos % (Auto) 1.7 % (0.6-7.6) 02/23/17 19:43 Baso % (Auto) 0.5 % (0.3-1.7) 02/23/17 19:43 Nucleat RBC Rel Count 0.0 % (0.0-0.2) 02/23/17 19:43 Absolute Neuts (auto) 1.97 10^3/uL (1.70-6.50) 02/23/17 19:43 Absolute Lymphs (auto) 1.70 10^3/uL (1.00-3.00) 02/23/17 19:43 Absolute Monos (auto) 0.36 10^3/uL (0.30-0.80) 02/23/17 19:43 Absolute Eos (auto) 0.07 10^3/uL (0.03-0.40) 02/23/17 19:43 Absolute Basos (auto) 0.02 10^3/uL (0.02-0.10) 02/23/17 19:43 Absolute Nucleated RBC 0.00 10^3/uL (0-0.01) 02/23/17 19:43 Immature Gran % 0.0 % (0.0-1.1) 02/23/17 19:43 Immature Gran # 0.00 10^3/uL (0.00-0.10) 02/23/17 19:43 PT 13.0 SEC (12.0-15.0) 02/24/17 04:57 INR 0.99 (0.83-1.16) 02/24/17 04:57 APTT 32.3 SEC (23.0-38.0) 02/24/17 04:57 D-Dimer < 0.27 ug/mLFEU (0.00-0.50) 02/24/17 04:57 Sodium 146 mEq/L (134-144) H 02/24/17 04:57 Potassium 3.8 mEq/L (3.5-5.2) 02/24/17 04:57 Chloride 109 mEq/L (97-110) 02/24/17 04:57 Carbon Dioxide 27 mEq/l (22-31) 02/24/17 04:57 Anion Gap 10 mEq/L (8-16) 02/24/17 04:57 BUN 19 mg/dL (7-23) 02/24/17 04:57 Creatinine 0.7 mg/dL (0.7-1.3) 02/24/17 04:57 Estimated GFR > 60 02/24/17 04:57 Glucose 95 mg/dL (70-100) 02/24/17 04:57 Calcium 9.3 mg/dL (8.5-10.4) 02/24/17 04:57 Troponin I < 0.012 ng/mL (0-0.034) 02/24/17 04:57 TSH 0.032 uIU/mL (0.465-4.680) L 02/24/17 04:57
[2017-02-24] MEDS: LEVOTHYROXINE 100 MCG TAB PO SCH (10:24)
[2017-02-24] MEDS: LEVOTHYROXINE 88 MCG TAB PO SCH (10:24)
[2017-02-24] MEDS ORDERED: PNEUMOC 13-VAL CONJ-DIP CRM/PF 0.5 ML SYR IM ONE (11:44)
[2017-02-24] MEDS ORDERED: METOPROLOL TARTRATE 25 MG TAB PO ONE (17:12)
--- NOTE | 2017-02-24 17:28 | HOSPPROG ---
Hospitalist Progress Note Assessment/Plan: Assessment: 71-year-old male presents with acute chest pain and palpitations secondary to acute atrial tachycardia Plan: 1. Atrial tachycardia. Acute, evidenced by interrogation suggesting atrial tachycardia although after further discussion with Dr. Malcolm ventricular tachycardia cannot be completely excluded given the mild displacement of the pacemaker lead and resultant unipolar lead -that being said, with atrial tachycardia being the most likely cause of his palpitations, the indicated treatment is up titration of his beta-cristiana -the patient has experienced symptomatic fatigue in the past from metoprolol tartrate 25 mg -we will slowly up titrate his metoprolol tartrate to 12.5 mg twice daily beginning now and reassess for symptoms tomorrow morning -will monitor him closely on telemetry to ensure that he does not have a recurrent event 2. Coronary artery disease. Chronic, per Dr. Malcolm, the patient has moderate coronary disease, most recently noted in the left circumflex on cardiac catheterization September 2016 -there concerns that some of the patient's presenting symptoms may have been anginal by given that his known disease in a location very challenging to access and the patient has had negative cardiac enzymes thus far, we will proceed with full medical management as opposed to further cardiac risk stratification -will continue on full-dose aspirin, statin, beta-cristiana, ARB Diet. Regular Prophylaxis. Moderate risk patient, Lovenox 40 Code. Full Disposition. Anticipated discharge is uncertain this time, anticipated length stay is greater than 48 hours warranting inpatient admission status for acute atrial tachycardia in the setting of known coronary artery disease, placing the patient at high risk for precipitation of ischemia if the atrial tachycardia recurs, warrants ongoing active telemetry monitoring with medication adjustment of beta-cristiana. Per discussion with Dr. Malcolm, we both agree that patient has reasonable medical necessity to be an inpatient, receiving monitoring for the above, medication adjustment, high risk of morbidity and/or mortality if discharged prematurely. Subjective: Counseled the patient and his regarding his suspected atrial tachycardia, treatment with beta-blockers, slow titration given his previous symptoms of fatigue, need to alert us if he experiences any subsequent anginal symptoms Objective: Vital Signs Temp Pulse Resp BP Pulse Ox 36.8 C 71 21 H 130/43 H 91 L 02/24/17 15:24 02/24/17 15:24 02/24/17 15:24 02/24/17 15:24 02/24/17 15:24 Laboratory Results 02/24/17 04:57 02/23/17 02/24/17 02/25/17 05:59 05:59 05:59 Intake Total 100 Balance 100 PT 13.0 SEC (12.0-15.0) 02/24/17 04:57 INR 0.99 (0.83-1.16) 02/24/17 04:57 - Time Spent With Patient Time Spent with Patient: greater than 35 minutes Time Spent with Patient: Greater than 35 minutes spent on this patients care, greater than 50% of time spent counseling, educating, and coordinating care regarding the above mentioned plan. - Physical Exam Constitutional: no apparent distress, appears nourished, not in pain Cardiovascular: regular rate and rhythym, no murmur, rub, or gallop Respiratory: no respiratory distress, no rales or rhonchi, clear to auscultation Neurologic: AAOx3 Psychiatric: interacting appropriately, not encephalopathic, thought process linear, anxious, No agitated ICD10 Worksheet Patient Problems: Problems Problem Status Onset Chest pain Acute Palpitations Acute Chest pain Acute Supraventricular tachycardia Acute
[2017-02-24] MEDS ORDERED: VITAMIN D3 PO SCH (18:00)
[2017-02-24] MEDS ORDERED: CALCIUM CARBONATE PO SCH (18:00)
[2017-02-24] MEDS ORDERED: [UNRECOGNIZED DRUG - OTHER] PO SCH (18:00)
[2017-02-24] MEDS ORDERED: NIACIN ER 500 MG TAB.ER PO SCH (21:00)
[2017-02-24] MEDS ORDERED: PIOGLITAZONE HCL 15 MG TAB PO SCH (21:00)
[2017-02-24] MEDS ORDERED: EZETIMIBE 10 MG TAB PO SCH (21:00)
[2017-02-24] MEDS ORDERED: ROSUVASTATIN CALCIUM 40 MG TAB PO SCH (21:00)
[2017-02-24] MEDS ORDERED: LOSARTAN POTASSIUM 25 MG TAB PO SCH (21:00)
[2017-02-24] MEDS ORDERED: traZODone 50 MG TAB PO SCH (21:00)
[2017-02-24] MEDS ORDERED: SERTRALINE HCL 100 MG TAB PO SCH (21:00)
[2017-02-24] MEDS: METOPROLOL TARTRATE 25 MG TAB PO SCH (21:30)
[2017-02-25 05:31] VITALS: PULSE 74; TEMP 97.5
[2017-02-25] MEDS: LEVOTHYROXINE 88 MCG TAB PO SCH (05:58)
[2017-02-25] MEDS: LEVOTHYROXINE 100 MCG TAB PO SCH (05:58)
[2017-02-25] MEDS: PSYLLIUM METAMUCIL 1 PKT PO SCH (08:06)
[2017-02-25] MEDS: METOPROLOL TARTRATE 25 MG TAB PO SCH (08:07)
[2017-02-25] MEDS: ASPIRIN 325 MG TAB PO SCH (08:07)
[2017-02-25] MEDS: CALCIUM CARB W/VIT D 500 MG TAB PO SCH (08:07)
[2017-02-25] MEDS: CHOLECALCIFEROL VIT D3 1,000 UNITS TAB PO SCH (08:09)
[2017-02-25] MEDS: ENOXAPARIN 40 MG/0.4 ML SYR SC SCH (08:10)
[2017-02-25 08:16] VITALS: BP 119/70; RESP 16; O2SAT 91
--- NOTE | 2017-02-25 10:10 | SOAPPROG ---
SOAP Progress Note Assessment/Plan: Assessment/Plan: Patient was seen yesterday at Dr. Chris Malcolm request. I personally reviewed the pacemaker tracings, this shows an episode of atrial tachycardia/ atrial flutter at the same time that the patient was having symptoms of lightheadedness. Atrial lead is programmed unipolar and there may be some far field ventricular sensing, however there are more atrial then ventricular signals suggesting atrial tachycardia. Episode was less than 1 minute in duration. 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 Ventricular program stimulation was done at the same time which did not show any inducible ventricular arrhythmias. I think his symptoms correlate with atrial tachycardia on pacemaker check. Atrial tachycardia was nonsustained. I would recommend up titrating his beta- cristiana therapy as tolerated at this time from the electrophysiology standpoint. Dr. Malcolm will also be seeing the patient formally. 02/25/17 10:08 Objective: Vital Signs Temp Pulse Resp BP Pulse Ox 36.4 C 74 16 119/70 91 L 02/25/17 08:15 02/25/17 08:07 02/25/17 08:15 02/25/17 08:15 02/25/17 08:15 02/23/17 02/24/17 02/25/17 11:59 11:59 11:59 Intake Total 1200 Balance 1200 PT 13.0 SEC (12.0-15.0) 02/24/17 04:57 INR 0.99 (0.83-1.16) 02/24/17 04:57 ICD10 Worksheet Patient Problems: Problems Problem Status Onset Chest pain Acute Supraventricular tachycardia Acute Chest pain Acute Palpitations Acute
--- NOTE | 2017-02-25 16:46 | PDDCSUM ---
Discharge Summary Discharge Summary: DISCHARGE SUMMARY FOLLOW-UP ITEMS: Follow up with Dr. Cevallos next week, gauge beta-cristiana symptoms, reason Kailee gait pacemaker DATE OF ADMISSION: 02/23/2017 DATE OF DISCHARGE: 02/25/2017 DISCHARGE DIAGNOSES: 1. Acute atrial tachycardia 2. Chronic coronary artery disease CONSULTATIONS: Cardiology, EP PROCEDURES / IMAGING: Interrogation of pacemaker CHIEF COMPLAINT: Palpitation SUBJECTIVE: Patient is feeling well at time of discharge, no palpitation PHYSICAL EXAM ON DISCHARGE: Heart rate 70, systolic blood pressure 100-130, afebrile overnight, satting well on room air, heart rate is regular with a regular rhythm, lungs clear to auscultation bilaterally LABS ON DISCHARGE: None HOSPITAL COURSE BY PROBLEM: 1. Acute atrial tachycardia. Interrogation demonstrated an episode of atrial tachycardia which corresponded to the patient's symptoms of lightheadedness and palpitations. Patient's atrial lead is programmed unipolar and there may have been some far field ventricular sensing however there were more atrial then ventricular signals, suggesting atrial tachycardia. The total time of the episode was less than 1 minute in duration. Patient's prior ablation for supraventricular tachycardia which also included an ablation done for AVNRT with focal atrial tachycardia arising at the base of the right atrial appendage. Ventricular program stimulation was performed at that time which did not demonstrate any inducible ventricular arrhythmias. These points are all relevant because the patient has underlying coronary artery disease as demonstrated by a cardiac catheterization September of 2016 which demonstrated the presence of disease but no obstructive lesions. The purpose of this hospitalization was to ascertain whether the patient's symptoms corresponded more closely to atrial tachycardia rather than obstructive anginal symptoms and whether the atrial tachycardia would respond favorably to up titration of beta- cristiana without reducing his blood pressure to symptomatic hypotension. We were able to up titrate his metoprolol tartrate 12.5 mg twice daily and the patient tolerated this well. He did not demonstrate any evidence of further atrial tachycardia. He was hesitant to up titrate his beta-cristiana further given previous symptoms of lethargy with beta-cristiana. Patient will follow up with Dr. Cevallos next week and will up titrate if appropriate. 2. Chronic coronary artery disease. As noted above, there were initially concerns the patient's presenting symptoms may have been anginal but given that the patient had negative cardiac enzymes and his known coronary disease is in location very challenging to access, it was decided that proceeding with full medical management as opposed to further cardiac risk stratification would be appropriate. He was continued on his aspirin, statin, beta-cristiana, ARB. He did not experience any angina during this hospitalization DISCHARGE MEDICATIONS: Please see official discharge medication reconciliation sheet in chart , metoprolol tartrate 12.5 mg twice daily, continue all other home medications. DISCHARGE INSTRUCTIONS: Please follow up with Dr. Cevallos next week.
[2017-03-01] MEDS ORDERED: LEVOTHYROXINE 175 MCG TAB PO SCH (06:00)
== END 2017-02-25 11:49 | disposition home or self-care (01) | DRG 310 ==
LOC: F2W 22:11 → OBSVTOIN 02-24 17:32
PROVIDERS: ADMIT Internal Medicine; ATTEND Internal Medicine
DX: I47.1 Supraventricular tachycardia (principal); I25.10 Atherosclerotic heart disease of native coronary artery without angina pectoris; Z95.0 Presence of cardiac pacemaker; K21.9 Gastro-esophageal reflux disease without esophagitis; G47.00 Insomnia, unspecified; Z95.5 Presence of coronary angioplasty implant and graft; Z23 Encounter for immunization
CPT/HCPCS: G0009; G0378; J1650

== ENCOUNTER → 2017-03-11 | Outpatient (CLI) | payer OTHER, MEDICARE | LOC: BHFA 10:45 | PROVIDERS: ATTEND Internal Medicine Cardiovascular Disease | DX: I47.1 Supraventricular tachycardia (principal) ==

== ENCOUNTER → 2017-07-22 | Outpatient (CLI) | payer OTHER, MEDICARE | LOC: BHLMT 11:00 | PROVIDERS: ATTEND Internal Medicine Interventional Cardiology | DX: I25.10 Atherosclerotic heart disease of native coronary artery without angina pectoris (principal); I49.5 Sick sinus syndrome | CPT/HCPCS: 93017-PO ==

== ENCOUNTER → 2018-08-10 | Outpatient (CLI) | payer OTHER, MEDICARE | LOC: BHFA 10:45 | PROVIDERS: ATTEND Internal Medicine Cardiovascular Disease | DX: I25.10 Atherosclerotic heart disease of native coronary artery without angina pectoris (principal) | CPT/HCPCS: 93880-PO ==

== ENCOUNTER → 2018-08-11 | Outpatient (CLI) | payer OTHER, MEDICARE | LOC: BHLMT 08:30 | PROVIDERS: ATTEND Internal Medicine Cardiovascular Disease | DX: R06.09 Other forms of dyspnea (principal); I25.10 Atherosclerotic heart disease of native coronary artery without angina pectoris; I10 Essential (primary) hypertension; I49.5 Sick sinus syndrome | CPT/HCPCS: 78452; 93017; A9500; J2785 ==

== ENCOUNTER → 2018-12-19 | Outpatient (CLI) | payer OTHER, MEDICARE | LOC: BHLMT 14:45 | PROVIDERS: ATTEND Internal Medicine Cardiovascular Disease | DX: I35.1 Nonrheumatic aortic (valve) insufficiency (principal); I25.5 Ischemic cardiomyopathy; I25.10 Atherosclerotic heart disease of native coronary artery without angina pectoris | CPT/HCPCS: 93306-PO ==